=== PATIENT | male | born 1990 | race Caucasian/White ===

== ENCOUNTER 2023-07-29 03:18 | Emergency (ER) | payer OTHER ==
--- NOTE | 2023-07-29 03:30 | ED Physician Documentation ---
History of Present Illness - Stated complaint Stated Complaint: L TOE PX - Chief complaint Chief Complaint: Ext Problem - Additonal information Additional information: HPI from patient. Patient had a section of his toenail removed (left great toe) this past Monday (3 days ago). He says this was done by job compositor in [place] due to infection of the toe which was secondary to ingrown toenail. He says he is currently on an antibiotic (cephalexin), but had already been on this antibiotic for several days before the procedure. He presents at this time due to rapid worsening of throbbing pain of the left great toe with increasing swelling and erythema. He has not noticed any discharge from the area of toenail excision. Denies fever. Review of Systems Constitutional: denies: Fever Skin: reports: Rash Musculoskeletal: reports: Extremity pain, Extremity swelling PD PAST MEDICAL HISTORY - Past Medical History Past Medical History: No - Present Medications Home Medications: Ambulatory Orders Medication Instructions Recorded Confirmed Ibuprofen [Motrin] 600 mg PO Q6H PRN #20 tab 07/29/23 Oxycodone HCl/Acetaminophen 1 - 2 each PO Q6H PRN #14 tablet 07/29/23 [Percocet 5-325 mg Tablet] clindamycin HCL [Clindamycin HCl] 300 mg PO Q6HR #28 cap 07/29/23 - Allergies Allergies/Adverse Reactions: Allergies Allergy/AdvReac Type Severity Reaction Status Date / Time No Known Drug Allergies Allergy Verified 07/29/23 03:26 PD ED PE NORMAL - Vitals Vital signs reviewed: Yes - General General: Alert and oriented X 3, No acute distress, Well developed/nourished PD ED PE EXPANDED - Extremities Feet visual: 1 - deformity (medial third of toenail has been excised.), tenderness 2 - tenderness (confluent erythema, swelling, TTP. no fluctuance, no discharge) Results - Vitals Vitals: Vital Signs - 24 hr 07/29/23 07/29/23 03:26 04:12 Temperature 36.5 C Heart Rate 82 78 Respiratory 16 16 Rate Blood Pressure 130/90 H 123/83 H O2 Saturation 99 99 Oxygen O2 Source Room air PD Medical Decision Making - ED course Complexity details: considered differential, d/w patient ED course: Presents with signs and symptoms consistent with post-procedure infection involving the left great toe. Exam does not suggest any drainable collection/abscess. Patient is indicating he was already on antibiotics prior to the procedure, thus I would consider this a worsening of infection that was already present prior to procedure (rather than complication of the procedure). Given that he was on Keflex for several days before the procedure and continues to be on the same antibiotic for the past 2 to 3 days, and that the symptoms and signs are worsening despite this, I am changing the antibiotic to clindamycin. He is given the first dose of clindamycin in the emergency department and I am e-prescribing a course of clindamycin. I have instructed him to stop the Keflex. Pain is one of his chief concerns tonight. He is given 600 mg of Ibuprofen p.o. and provided a take-home pack of Percocet with e-prescription for Percocet as well as 600mg ibuprofen. Return precautions are discussed, instructed to follow-up with his job compositor, next available appointment. Patient says he has the podiatrists personal number and thus does not anticipate any difficulty in getting in touch with the job compositor I am prescribing a short course of short-acting opioid pain medication for this patient. I have reviewed the patients CT SCAN TECHNICIAN and no concerning findings were noted. I have discussed that the opioids are for short term therapy only, and will not be refilled from the ED. Departure - Departure Disposition: 01 Home, Self Care Clinical Impression: Cellulitis Qualifiers: Site of cellulitis: extremity Site of cellulitis of extremity: toe Laterality: left Qualified Code(s): L03.032 - Cellulitis of left toe Condition: Good Instructions: ED Infec Skin Cellulitis Prescriptions: clindamycin HCL [Clindamycin HCl] 300 mg PO Q6HR #28 cap Ibuprofen [Motrin] 600 mg PO Q6H PRN #20 tab PRN Reason: Pain Oxycodone HCl/Acetaminophen [Percocet 5-325 mg Tablet] 1 - 2 each PO Q6H PRN #14 tablet PRN Reason: pain Comments: Your signs and symptoms are suggestive of an infection of the toe despite already being on an antibiotic. You are given a different antibiotic in the emergency department (clindamycin) and I have electronically submitted a prescription for this antibiotic to the [facility] pharmacy in [place]. You can discontinue the previous antibiotic and take the clindamycin in its place. I have also submitted prescriptions for Percocet (opiate/narcotic pain medication) and ibuprofen (anti-inflammatory). Follow-up with the job compositor who performed the procedure as soon as can be arranged; if possible, a recheck of the toe on Monday would be ideal. I am prescribing a short course of narcotic pain medication for you. These are potentially dangerous and addictive medications that should be used carefully. These medications may constipate you. Take an xdiv-sva-strqzeb stool softener (docusate) twice daily with plenty of water while taking these medications. If you go 24 hours without a bowel movement, take [id number]-ruh-[id number] miralax, per package instructions. Do not drink or drive while taking these medications. If you received narcotic or sedating medications while in the emergency depar tment, do not drive for 24 hours. Store this medication in a safe, secure place and out of reach of children. It is a violation of federal law to give or sell this medication to another person or to use in a manner other than prescribed. The ED will not refill narcotic prescriptions, including prescriptions lost or stolen. To dispose of unwanted medications: 1. [facility] at [address] in [place] has a medication drop box. They accept prescription medications (in pill form) Monday through Monday 9:00 a.m. to 5:00 p.m. 2. [facility] [employer] accepts prescription medications (in pill form only) for disposal year round. Call for more information. 3. Contact the [facility] for the next [facility] sponsored prescription drug collection event. , [phone], or [phone]; Forms: PCP List Discharge Date/Time: 07/29/23 04:13
[2023-07-29 03:39] VITALS: O2SAT 99
[2023-07-29] MEDS ORDERED: oxyCODONE/ACET 5/325 Prepack 4 PO STA (03:54)
[2023-07-29] MEDS ORDERED: CLINDAMYCIN 150 MG CAPSULE PO STA (03:54)
[2023-07-29] MEDS ORDERED: IBUPROFEN 600 MG TABLET PO STA (03:56)
[2023-07-29 04:16] VITALS: BP 123/83
== END 2023-07-29 04:13 | disposition home or self-care (01) ==
LOC: ED 03:18
DX: L03.032 Cellulitis of left toe (principal)
CPT/HCPCS: 99282; 99283; A9270